=== PATIENT | female | born 1955 | race Caucasian/White ===

== ENCOUNTER → 2017-01-06 | Day surgery (SDC) | payer MEDICARE ==
[~2017-01-06] MED LIST: ENAL20TA81 PO; FURO20TA PO; GABA600T PO; HEPARIN SODIUM - IV 10,000 UNITS/10 ML VIAL ONE; LACTATED RINGER'S 1000 ML INJ 1,000 ML ONE; LANTUS2P SQ; LEVO200T43 PO; LIDOCAINE 1%/EPINEPHrine 1:100,000 SOLN 50 ML VIAL ONE; MULT1TAB84 PO; NOVOLOGP2 SQ; PENT400T PO; PROPOFOL 200 MG/20 ML AMP IV ONE; PROZ20CA11 PO; RESP: ALBUTEROL 2.5 MG/3 ML NEB (SCH) ONE; SODIUM CHLOR 0.9% 250 ML INJ 250 ML IV ONE; SODIUM CHLORIDE 0.9% 20 ML VIAL ONE; SODIUM CHLORIDE 0.9% INJ 10 ML ONE; SODIUM CHLORIDE 0.9% INJ 100 ML IV ONE; SOMA350T PO; TEMA30CA PO; VANCOMYCIN HCL 1000 MG VIAL ONE
--- NOTE | 2017-01-09 10:48 | MP ---
cc: TOBIN SHEPARD DATE OF SURGERY January 06, 2017 PREOPERATIVE DIAGNOSIS Chronic kidney disease with need for secure hemodialysis access/dysfunctional left radiocephalic A-V fistula POSTOPERATIVE DIAGNOSIS Chronic kidney disease with need for secure hemodialysis access/dysfunctional left radiocephalic A-V fistula PROCEDURE Left brachiocephalic A-V fistula creation. SURGEON Rich Shepard MD ANESTHESIA Local MAC. DESCRIPTION OF THE OPERATIVE PROCEDURE With the patient in the supine position, IV sedation was induced, the left arm prepped with Betadine and draped in a sterile fashion. 1 gram of Ancef was administered intravenously and following a protocol time-out, the skin and subcutaneous tissue along the medial supra-antecubital area preemptively infiltrated with 0.5% Marcaine with epinephrine. A curvilinear incision was performed along the medial supra-antecubital region through which the cephalic vein and brachial artery were circumferentially mobilized. The vein was ligated distally with 4-0 silk, transected proximal to the ligature, spatulated on end, flushed with heparinized saline and occluded with a Yasargil clip. The brachial artery was occluded proximally and distally with Yasargil clips. A vertical 4-mm arteriotomy was performed along the anterolateral surface. The artery was flushed proximally and distally with heparinized saline. An end-to-side anastomosis was performed between the vein and arteriotomy with continuous 7-0 Prolene. The occluding Yasargil clips were removed reestablishing pulsatile flow within the brachial artery as well as into the cephalic vein. Normal perfusion within the left hand was confirmed. Strict hemostasis was assured as well. The incision was closed with interrupted subcutaneous 4-0 Monocryl, continuous subcuticular 5-0 Monocryl, reinforced with Steri-Strips and covered with sterile gauze. Instrument, needle and sponge count were correct x 2. No operative complications. The patient was returned to the recovery room in stable condition having tolerated the procedure well. Tobin Shepard MD JTS/SSB /4:40 PM /10:43 AM
== END | disposition home or self-care (01) ==
LOC: ESDC 12:15
PROVIDERS: ATTEND Surgery Vascular Surgery
DX: T82.9XXA Unspecified complication of cardiac and vascular prosthetic device, implant and graft, initial encounter (principal); N18.6 End stage renal disease; E11.9 Type 2 diabetes mellitus without complications; Z79.4 Long term (current) use of insulin
CPT/HCPCS: 01844; 36821; 82948; J1644; J3010; J3370; J7050; J7613; J7120